=== PATIENT | female | born 1970 | race Caucasian/White ===

== ENCOUNTER 2020-10-25 07:18 | Emergency (ER) | payer SELFPAY ==
[~2020-10-25] VITALS: Ht 154.9 cm; Wt 88.0 kg
[2020-10-25 07:59] LABS: BASOPHILS % 0.8 % (0.0-2.0); EOSINOPHILS % 1.4 % (0.0-5.0); HEMATOCRIT. 26.7 % (36.0-48.0); HEMOGLOBIN. 8.3 g/dL (12.0-16.0); LYMPHOCYTES % 16.2 % (20.0-50.0); MEAN CORPUSCULAR HEMOGLOBIN 18.8 pg (28.0-32.0); MEAN CORPUSCULAR VOLUME 60.7 fL (81.0-99.0); MEAN PLATELET VOLUME 7.3 fl (7.4-10.4); MONOCYTES % 5.6 % (2.0-8.0); PLATELET 520 x1000/uL (130-400); RED BLOOD CELL COUNT 4.39 mill/uL (4.2-5.4); RED CELL DISTRIBUTION WIDTH 19.4 % (11.6-14.6)
[2020-10-25 08:08] LABS: CHLORIDE 109 mEq/L (98-107)
[2020-10-25 09:29] LABS: PLATELET ESTIMATE INCREASED
[2020-10-25 09:45] VITALS: BP 102/52
== END 2020-10-25 09:50 | disposition home or self-care (01) ==
LOC: ER 07:18
DX: R55 Syncope and collapse (principal)
CPT/HCPCS: 36415; 71045; 80053; 81025; 83880; 84484; 85025; 93005; 99285

== ENCOUNTER 2022-05-08 22:31 | Emergency (ER) | payer SELFPAY ==
[~2022-05-08] VITALS: Ht 157.5 cm; Wt 81.0 kg
[2022-05-08 22:34] VITALS: BP 100/48
[2022-05-08] MEDS ORDERED: KETOROLAC 60MG/2ML VIAL IM STA (23:35)
[2022-05-08] MEDS ORDERED: HYDROCODONE/ACETAMINOPHEN 5/325MG TABLET PO ONE (23:45)
[2022-05-08] MEDS ORDERED: LIDOCAINE HCL/PF 1% 10 MG/ML 5ML VIAL INFIL ONE (23:45)
[2022-05-09 00:17] LABS: CLARITY URINE CLOUDY (CLEAR); COLOR URINE YELLOW (YELLOW); KETONES URINE TRACE (NEGATIVE); LEUKOCYTE ESTERASE URINE 2+ (NEGATIVE); NITRITE URINE NEGATIVE (NEGATIVE); OCCULT BLOOD URINE 3+ (NEGATIVE); PROTEIN URINE 1+ (NEGATIVE); SPECIFIC GRAVITY URINE 1.016 (1.005-1.030); UROBILINOGEN URINE 0.2 E.U./dL (0.2-1.0)
[2022-05-09] MEDS ORDERED: LIDOCAINE HCL 1% 20ML VIAL (Pyxis) INJ INFIL ONE (00:30)
[2022-05-09] MEDS ORDERED: CEFTRIAXONE SODIUM 1 G/VIAL IM ONE (00:30)
[2022-05-09] MEDS ORDERED: IBUP-2029 PO (00:33)
[2022-05-09] MEDS ORDERED: SULF1TAB48 MT (00:33)
[2022-05-09] MEDS ORDERED: T3 PO (00:33)
[2022-05-09] MEDS ORDERED: ONDA4TAB50 PO (00:33)
[2022-05-09] MEDS ORDERED: AMOX1TAB16 MT (00:33)
== END 2022-05-09 01:04 | disposition home or self-care (01) ==
LOC: ER 22:31
DX: N75.1 Abscess of Bartholin's gland (principal); D64.9 Anemia, unspecified
CPT/HCPCS: 81003; 81025; 87086; 96372; 99284; J0696; J1885; J3490

== ENCOUNTER 2022-05-11 10:52 | Emergency (ER) | payer OTHER ==
[~2022-05-11] VITALS: Ht 167.6 cm; Wt 89.0 kg
[~2022-05-11 10:52] MED LIST: AMOX1TAB16 MT; IBUP-2029 PO; ONDA4TAB50 PO; SULF1TAB48 MT; T3 PO
[2022-05-11 10:57] VITALS: BP 119/62
[2022-05-11] MEDS ORDERED: ONDANSETRON 4MG ODT PO ONE (13:30)
== END 2022-05-11 14:24 | disposition home or self-care (01) ==
LOC: ER 10:52
DX: Z48.00 Encounter for change or removal of nonsurgical wound dressing (principal)
CPT/HCPCS: 99283; Q0162